=== PATIENT | female | born 1955 | race Hispanic/Latino ===

== ENCOUNTER 2016-11-14 00:23 | Inpatient (IN) | payer MEDICARE ==
[2016-11-14] MEDS ORDERED: DUONEB 0.5 MG-3 MG/3 ML SOLN IH ONE (00:53)
[2016-11-14] MEDS ORDERED: LASIX IV ONE (00:53)
[2016-11-14] MEDS ORDERED: DELTASONE PO ONE (00:53)
[2016-11-14] MEDS ORDERED: ZOFRAN IV ONE (00:54)
[2016-11-14] MEDS ORDERED: MORPHINE IV ONE (00:54)
[2016-11-14] MEDS ORDERED: BABY ASPIRIN PO ONE (00:55)
--- NOTE | 2016-11-14 00:55 | Emergency Department Report ---
HPI - General Time Seen by Provider: 11/14/16 00:24 - HPI HPI: The patient is a 61-year-old female with a history of CHF, hypertension, hyperlipidemia, who presents for evaluation of chest pain. The patient reports constant chest pain for the past 2-3 hours, midsternal in location, pressure- like in quality, radiating to the right axilla. She states that she believes she had a heart attack in the past but does not know if she'll received coronary stenting. The patient states that she is unsure if she has ever received a cardiac catheter or stress test. The patient denies fever, dyspnea, syncope, hemoptysis, unilateral leg swelling, recent immobilization, history of DVT or PE, recent cancer. ED Past Medical Hx - Past Medical History Hx Hypertension: Yes Hx Congestive Heart Failure: Yes Hx Headaches / Migraines: Yes Hx Seizures: Yes Hx Psychiatric Treatment: Yes (depression) Additional medical history: Glaucoma, Hiatel Hernia, Esophageal Stricture - Surgical History Additional Surgical History: Hysterectomy, Back Surgery - Social History Smoking Status: Current Every Day Smoker Substance Use Type: Alcohol - Medications Home Medications: Home Medications Medication Instructions Recorded Confirmed Last Taken Type Clonidine HCl [Kapvay] 0.1 mg PO BID 01/20/14 02/03/16 01/20/14 History Esomeprazole Magnesium [NexIUM] 40 mg PO QDAY 01/20/14 02/03/16 01/20/14 History FLUoxetine [PROzac] 40 mg PO QAM 01/20/14 02/03/16 01/19/14 History Travoprost [Travatan Z] 1 drop OP BID 01/20/14 02/05/16 01/18/14 History lamoTRIgine [LaMICtal Xr] 100 mg PO HS 01/20/14 02/03/16 01/19/14 History levETIRAcetam [Keppra TAB] 2 tab PO BID 01/20/14 02/03/16 01/20/14 History traZODone [Desyrel] 100 mg PO HS 01/20/14 02/03/16 01/19/14 History Budesoni/Formoterol 80-4.5(Nf) 2 puff IH BID 02/03/16 02/03/16 Unknown History [Symbicort 80-4.5 (Nf)] Furosemide [Lasix TAB] 20 mg PO QDAY 02/03/16 02/03/16 Unknown History Ipratropium (Nf) [Atrovent HFA 2 puff IH Q6HR 02/03/16 02/03/16 Unknown History 17MCG/PUFF] Lisinopril [Zestril TAB] 2.5 mg PO QDAY 02/03/16 02/03/16 Unknown History Lurasidone HCl [Latuda] 40 mg PO QHS 02/03/16 02/03/16 Unknown History Pantoprazole [Protonix TAB] 40 mg PO QDAY 02/03/16 02/03/16 Unknown History Quetiapine Fumarate [SEROquel] 50 mg PO QHS 02/03/16 02/03/16 Unknown History Ranitidine HCl [Acid Transmitter Operator] 150 mg PO BID 02/03/16 02/03/16 Unknown History Rosuvastatin (Nf) [Crestor] 20 mg PO QDAY 02/03/16 02/03/16 Unknown History Zolpidem [Ambien] 10 mg PO QHS 02/03/16 02/03/16 Unknown History ED Review of Systems ROS: Stated complaint: CHEST PAIN Other details as noted in HPI Constitutional: denies: fever ENT: denies: throat or neck pain Respiratory: denies: cough, shortness of breath Cardiovascular: reports chest pain Endocrine: denies unexplained weight loss or gain Gastrointestinal: denies: abdominal pain, nausea Genitourinary: denies: dysuria Musculoskeletal: denies: leg swelling Skin: denies: rash Neurological: denies: headache Hematological/Lymphatic: denies: easy bleeding or easy bruising Psych: denies sadness or hopelessness Physical Exam - Physical Exam Physical Exam: General: well-nourished, well-developed, no acute distress Head: Normocephalic, atraumatic Eyes: normal sclera ENT: Mucous membranes are pink and moist Neck: trachea midline, neck supple, No neck stiffness, no cervical adenopathy Respiratory: Breath sounds equal bilaterally, no wheezing, rales, or rhonchi Cardio: S1 and S2 present, no murmurs, rubs, gallops, capillary refill is brisk Abdomen: Normoactive bowel sounds, soft abdomen, no rigidity, no guarding or rebound tenderness Chest WALL/Back: No tenderness to palpation of the chest wall, no CVA tenderness with percussion Musc: No pitting edema Skin: No rash Neuro: no facial drooping, normal speech Psych: Normal affect ED Medical Decision Making - Lab Data Result diagrams: 11/14/16 00:56 11/14/16 00:56 - Medical Decision Making The patient was seen and examined by myself. The patient is placed on a cardiac exercise specialist and continuous pulse ox. On initial evaluation, the patient was found to be in no distress. EKG was negative for findings suggestive of acute cardiac infarct. The patient is given an aspirin tablet. The patient is given IV morphine for pain. Labs and imaging are obtained. Chest x-ray is negative for pneumothorax, focal consolidation, pulmonary vascular congestion, pleural effusion, or other obvious acute cardiopulmonary disease process. Lab results were non-revealing including negative troponin, WBC, hemoglobin, hematocrit, electrolytes, renal function. The patient was reevaluated and reported that their symptoms were improved. As the patient has chest pain and risk factors for development of acute coronary event, the patient will be admitted for close cardiopulmonary monitoring, serial troponins, and evaluation by cardiology. The physician on-call was contacted. They presented to the emergency department and evaluated the patient. They agreed to admit the patient. The ED admit order was placed. The patient was admitted in guarded condition. Critical care attestation.: If time is entered above; I have spent that time in minutes in the direct care of this critically ill patient, excluding procedure time. ED Disposition Clinical Impression: Acute chest pain Disposition: OP ADMITTED IP TO THIS HOSP Is pt being admited?: Yes Does the pt Need Aspirin: Yes Condition: Stable Time of Disposition: 00:54
[2016-11-14 01:40] LABS: Anion Gap 19 mmol/L; BUN/Creatinine Ratio 17.14; Blood Urea Nitrogen 12 mg/dL (7-17); Calcium 9.3 mg/dL (8.4-10.2); Carbon Dioxide 24 mmol/L (22-30); Chloride 100.8 mmol/L (98-107); Glucose 131 mg/dL (65-100); Potassium 3.7 mmol/L (3.6-5.0); Sodium 140 mmol/L (137-145)
[2016-11-14 02:15] LABS: Basophils % (Auto) 0.4 % (0.0-1.8); Eosinophils % (Auto) 2.6 % (0.0-4.3); Hemoglobin 12.2 gm/dl (10.1-14.3); Mean Corpuscular HGB Conc 32 % (30-34); Mean Corpuscular Hemoglobin 29 pg (28-32); Mean Corpuscular Volume 92 fl (79-97); Platelet Count 229 K/mm3 (140-440); Red Blood Count 4.15 M/mm3 (3.65-5.03); Red Cell Distribution Width 15.3 % (13.2-15.2); White Blood Count 7.6 K/mm3 (4.5-11.0)
--- NOTE | 2016-11-14 06:29 | History and Physical Report ---
History of Present Illness Date of examination: 11/14/16 Date of admission: 11/14/16 03:53 Chief complaint: chest pain History of present illness: This is a 61-year-old female with a history of CHF, hypertension, hyperlipidemia , who presents for evaluation of chest pain. The patient reports constant chest pain for the past 2-3 hours, midsternal in location, pressure-like in quality, radiating to the right axilla. She states that she was admitted to [place] last month and required ACLS for an episode of unconsciousness. The patient IS A POOR HISTORIAN AND states that she is unsure if she has ever received a cardiac catheter or stress test. The patient denies fever, dyspnea, syncope, hemoptysis, unilateral leg swelling, recent immobilization, history of DVT or PE, recent cancer. Past medical History: h/o CHF, hypertension, hyperlipidemia, migraine, seizure, depression, glaucoma, hiatal hernia, esophageal stricture. Past surgical History: s/p hysterectomy and back surgery Social History: Lives with family, denies any elicit drug abuse. She is a social drinker and current every day smoker Family History: Significant for cardiac disease Review of System: Constitutional: no fever, no chills, no weight loss Ears, eyes, nose, mouth and throat: no nasal congestion, no nasal discharge, no sinus pressure, no vision change, no red eye. Neck: No neck pain or rigidity. Cardiovascular: + chest pain, no orthopnea, no palpitations, no leg swelling Respiratory: No shortness of breath, no cough, no congestion, no wheezing Gastrointestinal: no abdominal pain, no nausea, no vomiting Genitourinary : no dysuria, no hematuria Musculoskeletal: no joint swelling or muscle ache Integumentary: no rash, no pruritis Neurological: no parathesias, no numbness, no tingling Endocrine: no cold or heat intolerance, no polyuria or polydipsia Hematologic/Lymphatic: no easy bruising, no easy bleeding, no gland swelling Allergic/Immunologic: no urticaria, no angioedema. Medications and Allergies Allergies Allergy/AdvReac Type Severity Reaction Status Date / Time No Known Allergies Allergy Verified 01/20/14 20:30 Home Medications Medication Instructions Recorded Confirmed Last Taken Type Clonidine HCl [Kapvay] 0.1 mg PO BID 01/20/14 11/14/16 01/20/14 History FLUoxetine [PROzac] 40 mg PO QAM 01/20/14 11/14/16 01/19/14 History levETIRAcetam [Keppra TAB] 2 tab PO BID 01/20/14 11/14/16 01/20/14 History Amitriptyline 150 mg PO QHS 11/14/16 11/14/16 Unknown History Buspirone HCl [busPIRone] 15 mg PO TID 11/14/16 11/14/16 Unknown History FLUoxetine HCL [FLUoxetine] 40 mg PO DAILY 11/14/16 11/14/16 Unknown History Gabapentin [Neurontin] 600 mg PO TID 11/14/16 11/14/16 Unknown History hydrALAZINE [Apresoline] 25 mg PO BID 11/14/16 11/14/16 Unknown History risperiDONE [RisperDAL] 2 mg PO BID 11/14/16 11/14/16 Unknown History Exam - Physical Exam Narrative exam: GENERAL: This is an elderly female lying on bed appeared to be in no discomfort. HEENT: Normocephalic. Atraumatic. Extraocular motions are intact. No conjunctival congestion or icterus. Patient has moist mucous membranes. External auditory canal and nares patent bilaterally. NECK: Supple. Trachea midline. No JVD, thyromagaly or lymphadenopathy. CHEST/LUNGS: Clear to auscultated bilaterally. There is no respiratory distress noted, breathing nonlabored. No wheezes crackles or rhonchi. HEART/CARDIOVASCULAR: Regular in rate and rhythm. PMI at the apex. There is no gallop rub or murmur. ABDOMEN: Abdomen is soft, nontender. Patient has normal bowel sounds. There is no abdominal distention. No organomagaly or rigidity. SKIN: There is no rash, no erythrema. There is no diaphoresis. Warm and dry. NEUROLOGY: The patient is awake, alert, and oriented. The patient is cooperative. The patient has normal speech. No focal motor deficit. MUSCULOSKELETAL: No joint effusion or tenderness. Muscle strength equal bilaterally. No muscle wasting. EXTRIMITY: No edema, cyanosis or clubbing. PSYCH: No depression or anxiety noted. Cooperative. - Constitutional Vitals: Temp Pulse Resp BP Pulse Ox 98.4 F 78 20 138/89 93 11/14/16 05:22 11/14/16 05:22 11/14/16 05:22 11/14/16 05:22 11/14/16 05:22 Results - Labs CBC & Chem 7: 11/14/16 00:56 11/14/16 00:56 Labs: Laboratory Last Values WBC 7.6 K/mm3 (4.5-11.0) 11/14/16 00:56 RBC 4.15 M/mm3 (3.65-5.03) 11/14/16 00:56 Hgb 12.2 gm/dl (10.1-14.3) 11/14/16 00:56 Hct 38.0 % (30.3-42.9) 11/14/16 00:56 MCV 92 fl (79-97) 11/14/16 00:56 MCH 29 pg (28-32) 11/14/16 00:56 MCHC 32 % (30-34) 11/14/16 00:56 RDW 15.3 % (13.2-15.2) H 11/14/16 00:56 Plt Count 229 K/mm3 (140-440) 11/14/16 00:56 Lymph % (Auto) 32.4 % (13.4-35.0) 11/14/16 00:56 [place] % (Auto) 6.9 % (0.0-7.3) 11/14/16 00:56 Eos % (Auto) 2.6 % (0.0-4.3) 11/14/16 00:56 Baso % (Auto) 0.4 % (0.0-1.8) 11/14/16 00:56 Lymph # 2.5 K/mm3 (1.2-5.4) 11/14/16 00:56 [place] # 0.5 K/mm3 (0.0-0.8) 11/14/16 00:56 Eos # 0.2 K/mm3 (0.0-0.4) 11/14/16 00:56 Baso # 0.0 K/mm3 (0.0-0.1) 11/14/16 00:56 Seg Neutrophils % 57.7 % (40.0-70.0) 11/14/16 00:56 Seg Neutrophils # 4.4 K/mm3 (1.8-7.7) 11/14/16 00:56 Sodium 140 mmol/L (137-145) 11/14/16 00:56 Potassium 3.7 mmol/L (3.6-5.0) 11/14/16 00:56 Chloride 100.8 mmol/L (98-107) 11/14/16 00:56 Carbon Dioxide 24 mmol/L (22-30) 11/14/16 00:56 Anion Gap 19 mmol/L 11/14/16 00:56 BUN 12 mg/dL (7-17) 11/14/16 00:56 Creatinine 0.7 mg/dL (0.7-1.2) 11/14/16 00:56 Estimated GFR > 60 ml/min 11/14/16 00:56 BUN/Creatinine Ratio 17.14 % 11/14/16 00:56 Glucose 131 mg/dL (65-100) H 11/14/16 00:56 Calcium 9.3 mg/dL (8.4-10.2) 11/14/16 00:56 Total Creatine Kinase 42 units/L (30-135) 11/14/16 01:09 Troponin T < 0.010 ng/mL (0.00-0.029) 11/14/16 00:56 NT-Pro-B Natriuret Pep 88.89 pg/mL (0-900) 11/14/16 01:09 - Imaging and Cardiology EKG: report reviewed Chest x-ray: report reviewed Assessment and Plan Assessment and plan: Acute chest pain, rule out ACS History of CHF, unknown ejection fraction History of depression History of seizure History of GERD with hiatal hernia and esophageal stricture Hypertension, benign essential History of glaucoma Plan: Admit to medicine [facility] with serial troponin and EKG obtain 2-D echo and thallium stress test Resume home meds Place on aspirin and statin GI and DVT prophylaxis Advance Directives: Yes VTE prophylaxis?: Chemical Plan of care discussed with patient/family: Yes
[2016-11-14] MEDS ORDERED: REGLAN PO PRN (06:32)
[2016-11-14] MEDS ORDERED: MORPHINE IV PRN (06:32)
[2016-11-14] MEDS ORDERED: TYLENOL PO PRN (06:32)
[2016-11-14] MEDS: NEURONTIN PO SCH ×3 (08:03→21:30)
[2016-11-14] MEDS: BUSPAR PO SCH ×6 (08:03→21:30)
[2016-11-14] MEDS ORDERED: LEXISCAN IV ONE ×2 (08:06→08:26)
--- NOTE | 2016-11-14 09:07 | XRay Report ---
AP CHEST : 11/14/16 00:23:00 CLINICAL: Chest pain. COMPARISON:None FINDINGS: Normal heart and pulmonary vessels.Aortic tortuosity. The lungs are normally expanded and clear except for mild bibasal subsegmental atelectasis. The bones and soft tissues are unremarkable. IMPRESSION: Mild bibasal subsegmental atelectasis. No CHF or pneumonia.
--- NOTE | 2016-11-14 11:56 | Consultation ---
History of Present Illness Consult date: 11/14/16 Consult reason: chest pain Past History Past Medical History: atrial fib, hypertension Social history: denies: smoking, alcohol abuse, prescription drug abuse Family history: no significant family history Medications and Allergies Allergies Allergy/AdvReac Type Severity Reaction Status Date / Time No Known Allergies Allergy Verified 01/20/14 20:30 Home Medications Medication Instructions Recorded Confirmed Last Taken Type Clonidine HCl [Kapvay] 0.1 mg PO BID 01/20/14 11/14/16 01/20/14 History FLUoxetine [PROzac] 40 mg PO QAM 01/20/14 11/14/16 01/19/14 History levETIRAcetam [Keppra TAB] 2 tab PO BID 01/20/14 11/14/16 01/20/14 History Amitriptyline 150 mg PO QHS 11/14/16 11/14/16 Unknown History Buspirone HCl [busPIRone] 15 mg PO TID 11/14/16 11/14/16 Unknown History FLUoxetine HCL [FLUoxetine] 40 mg PO DAILY 11/14/16 11/14/16 Unknown History Gabapentin [Neurontin] 600 mg PO TID 11/14/16 11/14/16 Unknown History hydrALAZINE [Apresoline] 25 mg PO BID 11/14/16 11/14/16 Unknown History risperiDONE [RisperDAL] 2 mg PO BID 11/14/16 11/14/16 Unknown History Active Meds: Active Medications Acetaminophen (Tylenol) 650 mg PO Q4H PRN PRN Reason: Pain MILD(1-3)/Fever >100.5/FULLER Acetaminophen/Hydrocodone Bitart (Luke 5/325) 2 each PO Q6H PRN PRN Reason: Pain, Moderate (4-6) Amitriptyline HCl (Elavil) 150 mg PO QHS [facility] Buspirone HCl (Buspar) 10 mg PO TID [facility] Last Admin: 11/14/16 08:03 Dose: Not Given Buspirone HCl (Buspar) 5 mg PO TID [facility] Last Admin: 11/14/16 08:03 Dose: Not Given Clonidine HCl (Catapres) 0.1 mg PO BID [facility] Docusate Sodium (Colace) 100 mg PO BID [facility] Enoxaparin Sodium (Lovenox) 40 mg SUB-Q QDAY@2200 [facility] Famotidine (Pepcid) 10 mg PO BID [facility] Fluoxetine HCl (Prozac) 40 mg PO QAM [facility] Gabapentin (Neurontin) 600 mg PO TID [facility] Last Admin: 11/14/16 08:03 Dose: Not Given Levetiracetam (Keppra) 500 mg PO BID [facility] Metoclopramide HCl (Reglan) 10 mg PO Q6H PRN PRN Reason: Nausea And Vomiting Morphine Sulfate (Morphine) 2 mg IV Q4H PRN PRN Reason: Pain, Moderate (4-6) Risperidone (Risperdal) 2 mg PO BID [facility] Review of Systems Constitutional: no weight loss, no fever, no chills, no anorexia, no fatigue ( very poor unreliable historian) Physical Examination Vital Signs Pulse Resp BP 88 18 138/85 11/14/16 00:35 11/14/16 00:35 11/14/16 00:35 General appearance: no acute distress HEENT: Positive: PERRL Neck: Positive: neck supple Cardiac: Positive: Reg Rate and Rhythm, S1/S2 Lungs: Positive: clear to auscultation Neuro: Positive: Grossly Intact Abdomen: Positive: Unremarkable, Soft, Active Bowel Sounds Female genitourinary: deferred Skin: Positive: Clear. Negative: Rash Musculoskeletal: Normal Range of Motion Extremities: Present: normal Results 11/14/16 00:56 11/14/16 00:56 Cardiac Enzymes 11/14/16 11/14/16 Range/Units 07:43 07:43 Troponin T < 0.010 (0.00-0.029) ng/mL Triglycerides 156 H (2-149) mg/dL Cholesterol 220 H (50-199) mg/dL LDL Cholesterol Direct 151 H (50-130) mg/dL HDL Cholesterol 38 L (40-59) mg/dL Cholesterol/HDL Ratio 5.78 % Lipids 11/14/16 Range/Units 07:43 Triglycerides 156 H (2-149) mg/dL Cholesterol 220 H (50-199) mg/dL HDL Cholesterol 38 L (40-59) mg/dL Cholesterol/HDL Ratio 5.78 % Assessment and Plan 61yo WF: 1. Atypical CP * now resolved * ce neg x 3, no acute ecg changes * stress mpi neg for ischemia, nl lv fxn 2. Depression 3. Siezure d/o 4. GERD 5. sHTN 6. ? dementia 7. Mixed hyperlipidemia start statin, cont asa stable cv status cardiac history is unclear D/w Dr. More F/U with primary research management associate at [facility]
--- NOTE | 2016-11-14 13:20 | Echocardiography Report ---
REFERRING PHYSICIAN: Catina Morales MD INDICATION: Shortness of breath, chest pain. Please see report for all measurements and velocities. INTERPRETATION: This is a technically difficult study due to poor acoustic windows. There is a mild concentric left ventricular hypertrophy with normal chamber size and systolic performance grossly. Estimated ejection fraction of 65-70%. Aortic valve appears to be difficult to visualize, but appears to be preserved in excursion and coaptation. No evidence of aortic insufficiency. Right ventricle, right atrium appears grossly normal. Left atrium is normal in size. Mitral valve is mildly thickened, mild mitral regurgitation is identified. There is mild diastolic dysfunction. No pericardial effusion. CONCLUSIONS: 1. Technically difficult limited study due to poor acoustic windows. 2. Mild concentric left ventricular hypertrophy with normal chamber size and LV function. 3. Mild diastolic dysfunction. 4. Mild mitral regurgitation. 5. No pericardial effusion. JOB# [id number] SBM/NTS
[2016-11-14] MEDS: KEPPRA PO SCH ×2 (13:27→21:31)
[2016-11-14] MEDS: PEPCID PO SCH ×2 (13:27→21:32)
[2016-11-14] MEDS: RisperDAL PO SCH ×2 (13:28→21:32)
[2016-11-14] MEDS: CATAPRES PO SCH ×2 (13:28→21:30)
[2016-11-14] MEDS: COLACE PO SCH ×2 (13:28→21:31)
[2016-11-14] MEDS: PROzac PO SCH (13:28)
[2016-11-14] MEDS: NORCO 5/325 PO PRN (13:28)
--- NOTE | 2016-11-14 13:53 | Discharge Summary ---
Providers - Providers Date of Admission: 11/14/16 03:53 Date of discharge: 11/17/16 Attending physician: JEFF GRIMES MD 11/14/16 07:36 Consult to Physician [CONS] Routine Consulting Provider: MONA DAVIES Reason For Exam: chest pain Place consult to:: immigration law specialist cardiology Notified:: Verito CUEVAS Phone number called:: Was contact made?: Yes If yes, spoke with:: Verna-andreia service Time called:: 08:24 Primary care physician: FUR VAULT ATTENDANT Hospitalization Reason for admission: chest pain Condition: Stable Hospital course: This is a 61-year-old female with a history of CHF, hypertension, hyperlipidemia , who presents for evaluation of chest pain. The patient reports constant chest pain for the past 2-3 hours, midsternal in location, pressure-like in quality, radiating to the right axilla. She states that she was admitted to [place] last month and required ACLS for an episode of unconsciousness. The patient IS A POOR HISTORIAN AND states that she is unsure if she has ever received a cardiac catheter or stress test. The patient denies fever, dyspnea, syncope, hemoptysis, unilateral leg swelling, recent immobilization, history of DVT or PE, recent cancer. Plan follow discussion with the patient she reports she has had some chronic pain including tailbone pain and also neck pain. Sometimes at this consult across her chest and that may have been what she was experiencing yesterday. Nevertheless her stress test is negative. We'll start him on aspirin and statin therapy also. Recommended outpatient follow-up with cardiology. Patient improved faster than anticipated Discharge diagnosis 1. Atypical CP-likely costochondritis 2. Depression 3. Siezure d/o 4. Hiatal hernia 5. Esophageal stricture 6. Glaucoma 7. GERD 8. HTN 9. ? dementia 10. Mixed hyperlipidemia Disposition: DISCHARGED TO HOME OR SELFCARE Time spent for discharge: 35 mins Core Measure Documentation - Palliative Care Palliative Care/ Comfort Measures: Not Applicable - Core Measures Any of the following diagnoses?: none - VTE Discharge Requirements Deep Vein Thrombosis/Pulmonary Embolism Present on Admission: No Exam - Physical Exam Narrative exam: VITAL SIGNS: Reviewed. GENERAL: The patient appeared well nourished and normally developed. Vital signs as documented. HEAD: No signs of head trauma. EYES: Pupils are equal. Extraocular motions intact. EARS: Hearing grossly intact. MOUTH: Oropharynx is normal. NECK: No adenopathy, no JVD. CHEST: Chest with clear breath sounds bilaterally. No wheezes, rales, or rhonchi. CARDIAC: Regular rate and rhythm. S1 and S2, without murmurs, gallops, or rubs. VASCULAR: No Edema. Peripheral pulses normal and equal in all extremities. ABDOMEN: Soft, without detectable tenderness. No sign of distention. No rebound or guarding, and no masses palpated. Bowel Sounds normal. MUSCULOSKELETAL: Good range of motion of all major joints. Extremities without clubbing, cyanosis or edema. NEUROLOGIC EXAM: Alert and oriented x 3. No focal sensory or strength deficits. Speech normal. Follows commands. PSYCHIATRIC: Mood normal. SKIN: No rash or lesions. - Constitutional Vitals: Temp Pulse Resp BP Pulse Ox 98.2 F 82 20 140/99 93 11/14/16 08:13 11/14/16 11:08 11/14/16 08:13 11/14/16 10:31 11/14/16 08:13 Plan Activity: advance as tolerated, fall precautions Diet: low fat, low salt Follow up with: PRIMARY CARE, [Primary Care Provider] - 3-5 Days Prescriptions: AtorvaSTATin [Lipitor] 20 mg PO QHS #30 tablet Aspirin 81 mg PO DAILY #30 tab.chew
[2016-11-14] MEDS: ELAVIL PO SCH (21:31)
[2016-11-14] MEDS: LOVENOX SUB-Q SCH ×2 (21:32→21:34)
--- NOTE | 2016-11-14 23:36 | Admit Criteria Form ---
Admission Criteria Documentation: CARDIOLOGY GRG Clinical Indications for Admission to Inpatient Care ( Place 'X' for any and all applicable criteria): Hospital admission is needed for appropriate care of the patient because of ANY ONE of the following (1): [ ] I. Hemodynamic instability as indicated by ALL of the following (1)(2)(3) (4)(5) [ ]a) Vital signs or other findings not as expected for chronic patient condition or baseline [ ]b) Instability indicated by ANY ONE of the following: [ ]i) Hypotension [ ]ii) Symptomatic Tachycardia unresponsive to treatment ( e.g., analgesia, fluids, sedation as indicated) [ ]iii) Inadequate perfusion indicated by ANY ONE of the following: [ ] 1) Lactic acidosis (> 2 mmol/L) [ ] 2) New abnormal capillary refill (> 3 seconds) [ ] 3) Reduced urine output [ ] 4) New altered mental status [ ]iv) Orthostatic vital sign changes unresponsive to treatment (e.g., fluids) [ ]v) IV inotropic or vasopressor medication required to maintain adequate blood pressure or perfusion [ ] II. Severe heart failure as indicated by ANY ONE of the following(17)(18) [ ]a) Respiratory distress [ ]b) Hypotension [ ]c) Anasarca (refractory to outpatient therapy) [ ]d) Cardiac arrhythmias of immediate concern [ ]e) Myocardial ischemia [ ] III. Cardiac arrhythmias or findings of immediate concern indicated by ANY ONE of the following (19)(20): [ ] a) Heart rhythms that are inherently dangerous or unstable indicated by ANY ONE of the following (21)(22)(23): [ ] i) Resuscitated ventricular fibrillation or cardiac arrest [ ] ii) Ventricular escape rhythm [ ] iii) Sustained ventricular tachycardia (30 seconds or more of ventricular rhythm at greater than 100 beats per minute) [ ] iv) Nonsustained ventricular tachycardia and ANY ONE of the following: [ ] 1) Suspected cardiac ischemia as cause or consequence of ventricular tachycardia [ ] 2) In setting of acute myocarditis [ ] b) Unstable cardiac conduction defects indicated by ANY ONE of the following(23)(24)(25) [ ] i) Type II second-degree atrioventricular block [ ]ii) Third-degree atrioventricular block [ ]iii) New-onset left bundle branch block with suspected myocardial ischemia [ ]c) Any heart rhythm and ANY ONE of the following (21)(22)(26)(27) (28) [ ] i) Continuous long-term ECG monitoring needed (e.g., initiation of drug requiring monitoring for more than 24 hours) [ ] ii) Patient has automatic implanted cardioverter defibrillator that is repeatedly firing, malfunctioning, or in need of immediate adjustment of settings beyond the scope of ambulatory or observation care [ ]d) Heart rhythms of concern due to ANY ONE of the following: [ ] i) Hypotension [ ] ii) Respiratory distress [ ] iii) Association with other significant symptoms (e.g., bradycardia with syncope or ongoing dizziness, supraventricular tachycardia with chest pain (14)(15)(17) [ ] IV. Monitoring for cardiac contusion beyond the scope of observation care needed [A](30)(31)(32) [ ] V. Surgical or device complication (e.g., valve replacement complication , pacemaker dysfunction) (35)(41)(44)(45)(46) [ ] . Inpatient palliative care needed. [B](49) Also use Inpatient Palliative Care Criteria [ ] VII. Nonbacterial thrombotic (marantic) endocarditis (36)(43)(47)(48) [ X] VIII. Cardiology condition, symptom, or finding for which emergency and observation care has failed or are not considered appropriate. [ ] IX. Acute valvular disease requiring inpatient as indicated by ANY ONE of the following (41) [ ]a) Acute valvular regurgitation (42) [ ]b) Noninfectious valvulitis (43) [ ]c) Obstructive valve thrombosis [ ]d) Paravalvular leak [ ]e) Other significant valvular disorder remaining after emergency or observation level of care (as appropriate) [ ]X. Pericardial disease requiring inpatient treatment as indicated by ANY ONE of the following (33)(34)(35)(36)(37) [ ]a) Suspected tamponade (38)(39)(40) [ ]b) Hemopericardium [ ]c) Other significant pericardial disorder remaining after emergency or observation level of care (as appropriate) [ ] XI. Cardiac ischemia beyond scope of emergency and observation care. [ ] XII. Hypertension requiring inpatient treatment as indicated by ANY ONE of the following (6)(7)(8) [ ]a) SBP greater than 220 mm Hg or DBP greater than 120 mmHg despite treatment [ ]b) SBP greater than 140 mm Hg or DBP greater than 100 mm Hg with evidence of acute end organ damage as indicated by ANY ONE of the following [ ] i) Altered mental status [ ] ii) Acute renal failure as indicated by new onset of ANY ONE of the following (9)(10)(11)(12)(13) [ ]1) 3-fold rise in serum creatinine from baseline [ ]2) Serum creatinine greater than 4 mg/dL ( 354 micromoles/L) with acute rise greater than 0.5 mg/dL (44.2 micromoles/L) [ ]3) Reduction of more than 75% in estimated glomerular filtration rate from baseline [ ]4) Estimated glomerular filtration rate less than 35 mL/min/1.73m2 (0.59 mL/sec/1.73m2) in child up to 18 years of age [ ]5) Cessation of urine output indicated by ALL of the following [ ]A. Adequate volume status [ ]B. Inadequate urine output as indicated by ANY ONE of the following [ ]a. Urine output less than 0.3 mL/kg/hr for 24 hours [ ]b. Anuria (urine output less than 0.1 mL/kg/hr) for 12 hours [ ] iii) Aortic dissection [ ] iv) Myocardial Ischemia [ ] v) Left ventricular heart failure [ ]vi) Retinal Hemorrhage [ ]vii) Other significant finding [ ]c) Hypertension in child requiring inpatient treatment as indicated by ALL of the following(14)(15)(16) [ ] i) Outpatient treatment not effective, not available, or not appropriate [ ]ii) SBP or DBP greater than 95th percentile for age [ ]iii) Evidence of acute end organ damage as indicated by ANY ONE of the following [ ]1) Altered mental status [ ]2) Acute renal failure as indicated by new onset of ANY ONE of the following(9)(10)(11)(12)(13) [ ]A. 3-fold rise in serum creatinine from baseline [ ]B. Serum creatinine greater than 4 mg/dL (354 micromoles/L) with acute rise greater than 0.5 mg/dL (44.2 micromoles/L) [ ]C. Reduction of more than 75% in estimated glomerular filtration rate from baseline [ ]D. Estimated glomerular filtration rate less than 35 mL/min/1.73m2 (0.59 mL/sec/1.73m2) in child up to 18 years of age [ ]E. Cessation of urine output indicated by ALL of the following [ ]a. Adequate volume status [ ]b. Inadequate urine output as indicated by ANY ONE of the following [ ]i) Urine output less than 0.3 mL/kg/hr for 24 hours [ ]ii) Anuria ( urine output less than 0.1 mL/kg/hr) for 12 hours [ ]3) Severe headache [ ]4) Visual disturbance [ ]5) Retinal hemorrhage [ ]6) Other significant finding [ ]XIII. Complications of transplanted heart indicated by ANY ONE of the following(61): [ ]a) Acute graft rejection requiring inpatient management (eg, intravenous immunosuppression)(62)(63) [ ]b) Acute graft heart failure indicated by ANY ONE of the following(64): [ ]i) Hemodynamic instability [ ]ii) Cardiac arrhythmias of immediate concern [ ]iii) Pulmonary edema that is very severe (eg, mechanical ventilation needed, imminent or likely, need for 100% oxygen to keep oxygen saturation above 90%) [ ]iv) Pulmonary edema that is persistent as indicated by ALL of the following: [ ]1) New need for oxygen therapy to keep oxygen saturation above 90% (or increased FiO2 need from baseline) [ ]2) Has not improved sufficiently with emergency department or observation care IV diuretics or other heart failure treatments[E] [ ]v) Altered mental status that is severe or persistent [ ]vi) Increased creatinine (new on laboratory test) with reduction of more than 50% in estimated glomerular filtration rate from baseline [ ]vii) Progressively (ongoing) rising creatinine (known from past laboratory test) with reduction of more than 25% in estimated glomerular filtration rate from baseline [ ]viii) Acute renal failure [ ]ix) Acute peripheral ischemia (eg, examination shows pulseless, cool, mottled, or cyanotic extremity) [ ]x) Pulmonary artery catheter monitoring needed [ ]xi) Other sign or symptom of heart failure requiring inpatient treatment (ie, too severe or not responsive to outpatient and observation care treatment) [ ]c) Infection requiring inpatient management (eg, Hemodynamic instability, need for intravenous antimicrobial treatment)(66)(67)(68)(69)(70) [ ]d) Cardiac allograft vasculopathy requiring inpatient management ( eg evidence of cardiac ischemia)(71) [ ]e) Other complication of transplanted heart (eg, stroke, severe pulmonary hypertension, severe valvular dysfunction) requiring inpatient management(72) The original [facility] content created by [facility] has been revised. The portions of the content which have been revised are identified through the use of italic text or in bold, and [facility] has neither reviewed nor approved the modified material. All other unmodified content is copyright [facility] [employer]. Please see references footnoted in the original [facility] edition 2016 Admission Criteria Met: Yes
--- NOTE | 2016-11-15 00:59 | Treadmill Report ---
NUCLEAR PERFUSION SCAN REFERRING PHYSICIAN: Catina Morales MD STRESS THALLIUM PROTOCOL: The patient was brought to the stress lab in a post-absorptive state, given 10 mCi of technetium 99m. Shortly thereafter, the patient underwent rest imaging. The patient underwent Lexiscan stress test per standard protocol. At peak stress, the patient was given 26 mCi of technetium-99m. Shortly thereafter, the patient underwent stress imaging. Raw imaging reveals mild GI artifact. No significant motion artifact. SPECT imaging examined carefully in the horizontal long axis, vertical long axis, and short axis views. Grossly, there is normal homogenous uptake of radioisotope in all reported segments. No evidence of a significant fixed or reversible perfusion defects suggestive of prior infarction or ischemia. Gated wall motion reveals normal systolic thickening, calculated ejection fraction of 77%. No TID. CONCLUSIONS: 1. Normal myocardial perfusion scan without evidence of active ischemia or prior infarction. 2. Normal left ventricular systolic performance without evidence of transient ischemic dilatation or stress-induced segmental wall motion abnormalities. 3. Lexiscan stress test is reported separately. JOB# [id number] SBWilder/NTS
[2016-11-15] MEDS: NORCO 5/325 PO PRN (02:42)
[2016-11-15] MEDS: PROzac PO SCH (09:37)
[2016-11-15] MEDS: RisperDAL PO SCH ×2 (09:37→21:36)
[2016-11-15] MEDS: PEPCID PO SCH ×2 (09:37→21:38)
[2016-11-15] MEDS: KEPPRA PO SCH ×2 (09:37→21:38)
[2016-11-15] MEDS: NEURONTIN PO SCH ×3 (09:38→21:38)
[2016-11-15] MEDS: BUSPAR PO SCH ×6 (09:38→21:37)
[2016-11-15] MEDS: COLACE PO SCH ×2 (09:38→21:37)
[2016-11-15] MEDS: CATAPRES PO SCH ×2 (09:39→21:37)
--- NOTE | 2016-11-15 14:23 | Progress Note ---
Assessment and Plan Stable cardiac status. We will sign off and see when necessary. - Patient Problems (1) Atypical chest pain Current Visit: Yes Status: Resolved (2) Hypertension Current Visit: Yes Status: Chronic Qualifiers: Hypertension type: essential hypertension Qualified Code(s): I10 - Essential (primary) hypertension Subjective Date of service: 11/15/16 Principal diagnosis: Atypical CP, HTN, Dementia Interval history: No chest pain. Objective Vital Signs Temp Pulse Pulse Pulse Resp BP Pulse Ox 11/15/16 12:50 98.4 F 87 18 147/93 94 11/15/16 10:00 98 11/15/16 07:27 97.8 F 79 18 124/76 91 11/15/16 05:00 98.2 F 73 18 124/78 92 11/15/16 00:50 98.6 F 76 19 122/75 91 11/14/16 20:59 97.7 F 83 19 126/80 92 11/14/16 20:32 20 11/14/16 17:35 98.1 F 88 20 130/81 94 - Physical Examination General: No Apparent Distress HEENT: Positive: EOMI, Normocephaly, Mucus Membranes Moist Neck: Positive: neck supple, trachea midline Cardiac: Positive: Reg Rate and Rhythm, S1/S2 Lungs: Positive: Wheezes Neuro: Positive: Grossly Intact Abdomen: Positive: Soft, Active Bowel Sounds. Negative: Tender Skin: Positive: Clear. Negative: Rash Musculoskeletal: Normal Range of Motion Extremities: Present: normal. Absent: edema - Imaging and Cardiology EKG: report reviewed
--- NOTE | 2016-11-15 16:22 | Progress Note ---
Assessment and Plan Assessment and plan: This is a 61-year-old female with a history of CHF, hypertension, hyperlipidemia , who presents for evaluation of chest pain. The patient reports constant chest pain for the past 2-3 hours, midsternal in location, pressure-like in quality, radiating to the right axilla. She states that she was admitted to [facility] last month and required ACLS for an episode of unconsciousness. The patient IS A POOR HISTORIAN AND states that she is unsure if she has ever received a cardiac catheter or stress test. The patient denies fever, dyspnea, syncope, hemoptysis, unilateral leg swelling, recent immobilization, history of DVT or PE, recent cancer. Plan follow discussion with the patient she reports she has had some chronic pain including tailbone pain and also neck pain. Sometimes at this consult across her chest and that may have been what she was experiencing yesterday. Nevertheless her stress test is negative. We'll start him on aspirin and statin therapy also. Recommended outpatient follow-up with cardiology. Patient improved faster than anticipated 1. Atypical CP-likely costochondritis 2. Depression 3. Siezure d/o 4. Hiatal hernia 5. Esophageal stricture 6. Glaucoma 7. GERD 8. HTN 9. ? dementia 10. Mixed hyperlipidemia Plan Continue current therapy Discharge home once bed is available History Interval history: Patient seen and examined this morning in no acute distress Denies any chest pain, nausea, vomiting, diarrhea No fever noted blood pressure controlled No adverse events reported to me by nursing staff Hospitalist Physical - Physical exam Narrative exam: VITAL SIGNS: Reviewed. GENERAL: The patient appeared well nourished and normally developed. Vital signs as documented. HEAD: No signs of head trauma. EYES: Pupils are equal. Extraocular motions intact. EARS: Hearing grossly intact. MOUTH: Oropharynx is normal. NECK: No adenopathy, no JVD. CHEST: Chest with clear breath sounds bilaterally. No wheezes, rales, or rhonchi. CARDIAC: Regular rate and rhythm. S1 and S2, without murmurs, gallops, or rubs. VASCULAR: No Edema. Peripheral pulses normal and equal in all extremities. ABDOMEN: Soft, without detectable tenderness. No sign of distention. No rebound or guarding, and no masses palpated. Bowel Sounds normal. MUSCULOSKELETAL: Good range of motion of all major joints. Extremities without clubbing, cyanosis or edema. NEUROLOGIC EXAM: Alert and oriented x 3. No focal sensory or strength deficits. Speech normal. Follows commands. PSYCHIATRIC: Mood normal. SKIN: No rash or lesions. - Constitutional Vitals: Temp Pulse Resp BP Pulse Ox 97.7 F 89 18 121/81 93 11/15/16 15:32 11/15/16 15:32 11/15/16 15:32 11/15/16 15:32 11/15/16 15:32 General appearance: Present: no acute distress Results - Labs CBC & Chem 7: 11/14/16 00:56 11/14/16 00:56 Labs: Laboratory Last Values WBC 7.6 K/mm3 (4.5-11.0) 11/14/16 00:56 RBC 4.15 M/mm3 (3.65-5.03) 11/14/16 00:56 Hgb 12.2 gm/dl (10.1-14.3) 11/14/16 00:56 Hct 38.0 % (30.3-42.9) 11/14/16 00:56 MCV 92 fl (79-97) 11/14/16 00:56 MCH 29 pg (28-32) 11/14/16 00:56 MCHC 32 % (30-34) 11/14/16 00:56 RDW 15.3 % (13.2-15.2) H 11/14/16 00:56 Plt Count 229 K/mm3 (140-440) 11/14/16 00:56 Lymph % (Auto) 32.4 % (13.4-35.0) 11/14/16 00:56 [place] % (Auto) 6.9 % (0.0-7.3) 11/14/16 00:56 Eos % (Auto) 2.6 % (0.0-4.3) 11/14/16 00:56 Baso % (Auto) 0.4 % (0.0-1.8) 11/14/16 00:56 Lymph # 2.5 K/mm3 (1.2-5.4) 11/14/16 00:56 [place]ier # 0.5 K/mm3 (0.0-0.8) 11/14/16 00:56 Eos # 0.2 K/mm3 (0.0-0.4) 11/14/16 00:56 Baso # 0.0 K/mm3 (0.0-0.1) 11/14/16 00:56 Seg Neutrophils % 57.7 % (40.0-70.0) 11/14/16 00:56 Seg Neutrophils # 4.4 K/mm3 (1.8-7.7) 11/14/16 00:56 Sodium 140 mmol/L (137-145) 11/14/16 00:56 Potassium 3.7 mmol/L (3.6-5.0) 11/14/16 00:56 Chloride 100.8 mmol/L (98-107) 11/14/16 00:56 Carbon Dioxide 24 mmol/L (22-30) 11/14/16 00:56 Anion Gap 19 mmol/L 11/14/16 00:56 BUN 12 mg/dL (7-17) 11/14/16 00:56 Creatinine 0.7 mg/dL (0.7-1.2) 11/14/16 00:56 Estimated GFR > 60 ml/min 11/14/16 00:56 BUN/Creatinine Ratio 17.14 % 11/14/16 00:56 Glucose 131 mg/dL (65-100) H 11/14/16 00:56 Calcium 9.3 mg/dL (8.4-10.2) 11/14/16 00:56 Total Creatine Kinase 42 units/L (30-135) 11/14/16 01:09 Troponin T < 0.010 ng/mL (0.00-0.029) 11/14/16 13:46 NT-Pro-B Natriuret Pep 88.89 pg/mL (0-900) 11/14/16 01:09 Triglycerides 156 mg/dL (2-149) H 11/14/16 07:43 Cholesterol 220 mg/dL (50-199) H 11/14/16 07:43 LDL Cholesterol Direct 151 mg/dL (50-130) H 11/14/16 07:43 HDL Cholesterol 38 mg/dL (40-59) L 11/14/16 07:43 Cholesterol/HDL Ratio 5.78 % 11/14/16 07:43
--- NOTE | 2016-11-15 16:24 | Progress Note ---
Assessment and Plan Assessment and plan: This is a 61-year-old female with a history of CHF, hypertension, hyperlipidemia , who presents for evaluation of chest pain. The patient reports constant chest pain for the past 2-3 hours, midsternal in location, pressure-like in quality, radiating to the right axilla. She states that she was admitted to [place] last month and required ACLS for an episode of unconsciousness. The patient IS A POOR HISTORIAN AND states that she is unsure if she has ever received a cardiac catheter or stress test. The patient denies fever, dyspnea, syncope, hemoptysis, unilateral leg swelling, recent immobilization, history of DVT or PE, recent cancer. 1. Atypical CP-likely costochondritis 2. Depression 3. Siezure d/o 4. Hiatal hernia 5. Esophageal stricture 6. Glaucoma 7. GERD 8. HTN 9. ? dementia 10. Mixed hyperlipidemia Plan Patient could not be discharged yesterday due to placement issues. She states that her sister has been spent money and not pain the personal shelter. The [employer] project manager on this. The state has been gotten involved as she does have a straight case management was trying to get her placed. No further distress is noted today. We'll continue current therapy. Seizure precautions. Continue current therapy Discharge home once bed is available History Interval history: Patient seen and examined this morning in no acute distress Denies any chest pain, nausea, vomiting, diarrhea No fever noted blood pressure controlled No adverse events reported to me by nursing staff Hospitalist Physical - Physical exam Narrative exam: VITAL SIGNS: Reviewed. GENERAL: The patient appeared well nourished and normally developed. Vital signs as documented. HEAD: No signs of head trauma. EYES: Pupils are equal. Extraocular motions intact. EARS: Hearing grossly intact. MOUTH: Oropharynx is normal. NECK: No adenopathy, no JVD. CHEST: Chest with clear breath sounds bilaterally. No wheezes, rales, or rhonchi. CARDIAC: Regular rate and rhythm. S1 and S2, without murmurs, gallops, or rubs. VASCULAR: No Edema. Peripheral pulses normal and equal in all extremities. ABDOMEN: Soft, without detectable tenderness. No sign of distention. No rebound or guarding, and no masses palpated. Bowel Sounds normal. MUSCULOSKELETAL: Good range of motion of all major joints. Extremities without clubbing, cyanosis or edema. NEUROLOGIC EXAM: Alert and oriented x 3. No focal sensory or strength deficits. Speech normal. Follows commands. PSYCHIATRIC: Mood normal. SKIN: No rash or lesions. - Constitutional Vitals: Temp Pulse Resp BP Pulse Ox 97.7 F 89 18 121/81 93 11/15/16 15:32 11/15/16 15:32 11/15/16 15:32 11/15/16 15:32 11/15/16 15:32 General appearance: Present: no acute distress Results - Labs CBC & Chem 7: 11/14/16 00:56 11/14/16 00:56 Labs: Laboratory Last Values WBC 7.6 K/mm3 (4.5-11.0) 11/14/16 00:56 RBC 4.15 M/mm3 (3.65-5.03) 11/14/16 00:56 Hgb 12.2 gm/dl (10.1-14.3) 11/14/16 00:56 Hct 38.0 % (30.3-42.9) 11/14/16 00:56 MCV 92 fl (79-97) 11/14/16 00:56 MCH 29 pg (28-32) 11/14/16 00:56 MCHC 32 % (30-34) 11/14/16 00:56 RDW 15.3 % (13.2-15.2) H 11/14/16 00:56 Plt Count 229 K/mm3 (140-440) 11/14/16 00:56 Lymph % (Auto) 32.4 % (13.4-35.0) 11/14/16 00:56 Kings % (Auto) 6.9 % (0.0-7.3) 11/14/16 00:56 Eos % (Auto) 2.6 % (0.0-4.3) 11/14/16 00:56 Baso % (Auto) 0.4 % (0.0-1.8) 11/14/16 00:56 Lymph # 2.5 K/mm3 (1.2-5.4) 11/14/16 00:56 Kings # 0.5 K/mm3 (0.0-0.8) 11/14/16 00:56 Eos # 0.2 K/mm3 (0.0-0.4) 11/14/16 00:56 Baso # 0.0 K/mm3 (0.0-0.1) 11/14/16 00:56 Seg Neutrophils % 57.7 % (40.0-70.0) 11/14/16 00:56 Seg Neutrophils # 4.4 K/mm3 (1.8-7.7) 11/14/16 00:56 Sodium 140 mmol/L (137-145) 11/14/16 00:56 Potassium 3.7 mmol/L (3.6-5.0) 11/14/16 00:56 Chloride 100.8 mmol/L (98-107) 11/14/16 00:56 Carbon Dioxide 24 mmol/L (22-30) 11/14/16 00:56 Anion Gap 19 mmol/L 11/14/16 00:56 BUN 12 mg/dL (7-17) 11/14/16 00:56 Creatinine 0.7 mg/dL (0.7-1.2) 11/14/16 00:56 Estimated GFR > 60 ml/min 11/14/16 00:56 BUN/Creatinine Ratio 17.14 % 11/14/16 00:56 Glucose 131 mg/dL (65-100) H 11/14/16 00:56 Calcium 9.3 mg/dL (8.4-10.2) 11/14/16 00:56 Total Creatine Kinase 42 units/L (30-135) 11/14/16 01:09 Troponin T < 0.010 ng/mL (0.00-0.029) 11/14/16 13:46 NT-Pro-B Natriuret Pep 88.89 pg/mL (0-900) 11/14/16 01:09 Triglycerides 156 mg/dL (2-149) H 11/14/16 07:43 Cholesterol 220 mg/dL (50-199) H 11/14/16 07:43 LDL Cholesterol Direct 151 mg/dL (50-130) H 11/14/16 07:43 HDL Cholesterol 38 mg/dL (40-59) L 11/14/16 07:43 Cholesterol/HDL Ratio 5.78 % 11/14/16 07:43
[2016-11-15] MEDS: ELAVIL PO SCH (21:35)
[2016-11-15] MEDS: LOVENOX SUB-Q SCH (21:39)
[2016-11-16] MEDS: NORCO 5/325 PO PRN (03:23)
[2016-11-16] MEDS: BUSPAR PO SCH ×6 (08:43→22:21)
[2016-11-16] MEDS: NEURONTIN PO SCH ×3 (08:43→22:18)
[2016-11-16] MEDS: COLACE PO SCH ×2 (09:45→22:18)
[2016-11-16] MEDS: CATAPRES PO SCH ×2 (09:45→22:14)
[2016-11-16] MEDS: PEPCID PO SCH ×2 (09:45→22:18)
[2016-11-16] MEDS: KEPPRA PO SCH ×2 (09:45→22:18)
[2016-11-16] MEDS: RisperDAL PO SCH ×2 (09:46→22:17)
[2016-11-16] MEDS: PROzac PO SCH (09:46)
--- NOTE | 2016-11-16 22:02 | Progress Note ---
Assessment and Plan Assessment and plan: This is a 61-year-old female with a history of CHF, hypertension, hyperlipidemia , who presents for evaluation of chest pain. The patient reports constant chest pain for the past 2-3 hours, midsternal in location, pressure-like in quality, radiating to the right axilla. She states that she was admitted to [facility] last month and required ACLS for an episode of unconsciousness. The patient IS A POOR HISTORIAN AND states that she is unsure if she has ever received a cardiac catheter or stress test. The patient denies fever, dyspnea, syncope, hemoptysis, unilateral leg swelling, recent immobilization, history of DVT or PE, recent cancer. 1. Atypical CP-likely costochondritis 2. Depression 3. Siezure d/o 4. Hiatal hernia 5. Esophageal stricture 6. Glaucoma 7. GERD 8. HTN 9. ? dementia 10. Mixed hyperlipidemia Plan Continue current therapy Still awaiting placement No further chest pain seizure precautions. Continue current therapy Discharge home once bed is available History Interval history: Patient seen and examined this morning in no acute distress Denies any chest pain, nausea, vomiting, diarrhea No fever noted blood pressure controlled No adverse events reported to me by nursing staff Hospitalist Physical - Physical exam Narrative exam: VITAL SIGNS: Reviewed. GENERAL: The patient appeared well nourished and normally developed. Vital signs as documented. HEAD: No signs of head trauma. EYES: Pupils are equal. Extraocular motions intact. EARS: Hearing grossly intact. MOUTH: Oropharynx is normal. NECK: No adenopathy, no JVD. CHEST: Chest with clear breath sounds bilaterally. No wheezes, rales, or rhonchi. CARDIAC: Regular rate and rhythm. S1 and S2, without murmurs, gallops, or rubs. VASCULAR: No Edema. Peripheral pulses normal and equal in all extremities. ABDOMEN: Soft, without detectable tenderness. No sign of distention. No rebound or guarding, and no masses palpated. Bowel Sounds normal. MUSCULOSKELETAL: Good range of motion of all major joints. Extremities without clubbing, cyanosis or edema. NEUROLOGIC EXAM: Alert and oriented x 3. No focal sensory or strength deficits. Speech normal. Follows commands. PSYCHIATRIC: Mood normal. SKIN: No rash or lesions. - Constitutional Vitals: Temp Pulse Resp BP Pulse Ox 97.1 F L 93 H 18 156/94 96 11/16/16 17:27 11/16/16 21:51 11/16/16 21:51 11/16/16 21:51 11/16/16 21:51 General appearance: Present: no acute distress Results - Labs CBC & Chem 7: 11/14/16 00:56 02 00:56 Labs: Laboratory Last Values WBC 7.6 K/mm3 (4.5-11.0) 11/14/16 00:56 RBC 4.15 M/mm3 (3.65-5.03) 11/14/16 00:56 Hgb 12.2 gm/dl (10.1-14.3) 11/14/16 00:56 Hct 38.0 % (30.3-42.9) 11/14/16 00:56 MCV 92 fl (79-97) 11/14/16 00:56 MCH 29 pg (28-32) 11/14/16 00:56 MCHC 32 % (30-34) 11/14/16 00:56 RDW 15.3 % (13.2-15.2) H 11/14/16 00:56 Plt Count 229 K/mm3 (140-440) 11/14/16 00:56 Lymph % (Auto) 32.4 % (13.4-35.0) 11/14/16 00:56 Wood % (Auto) 6.9 % (0.0-7.3) 11/14/16 00:56 Eos % (Auto) 2.6 % (0.0-4.3) 11/14/16 00:56 Baso % (Auto) 0.4 % (0.0-1.8) 11/14/16 00:56 Lymph # 2.5 K/mm3 (1.2-5.4) 11/14/16 00:56 Wood # 0.5 K/mm3 (0.0-0.8) 11/14/16 00:56 Eos # 0.2 K/mm3 (0.0-0.4) 11/14/16 00:56 Baso # 0.0 K/mm3 (0.0-0.1) 11/14/16 00:56 Seg Neutrophils % 57.7 % (40.0-70.0) 11/14/16 00:56 Seg Neutrophils # 4.4 K/mm3 (1.8-7.7) 11/14/16 00:56 Sodium 140 mmol/L (137-145) 11/14/16 00:56 Potassium 3.7 mmol/L (3.6-5.0) 11/14/16 00:56 Chloride 100.8 mmol/L (98-107) 11/14/16 00:56 Carbon Dioxide 24 mmol/L (22-30) 11/14/16 00:56 Anion Gap 19 mmol/L 11/14/16 00:56 BUN 12 mg/dL (7-17) 11/14/16 00:56 Creatinine 0.7 mg/dL (0.7-1.2) 11/14/16 00:56 Estimated GFR > 60 ml/min 11/14/16 00:56 BUN/Creatinine Ratio 17.14 % 11/14/16 00:56 Glucose 131 mg/dL (65-100) H 11/14/16 00:56 Calcium 9.3 mg/dL (8.4-10.2) 11/14/16 00:56 Total Creatine Kinase 42 units/L (30-135) 11/14/16 01:09 Troponin T < 0.010 ng/mL (0.00-0.029) 11/14/16 13:46 NT-Pro-B Natriuret Pep 88.89 pg/mL (0-900) 11/14/16 01:09 Triglycerides 156 mg/dL (2-149) H 11/14/16 07:43 Cholesterol 220 mg/dL (50-199) H 11/14/16 07:43 LDL Cholesterol Direct 151 mg/dL (50-130) H 11/14/16 07:43 HDL Cholesterol 38 mg/dL (40-59) L 11/14/16 07:43 Cholesterol/HDL Ratio 5.78 % 11/14/16 07:43
[2016-11-16] MEDS: ELAVIL PO SCH (22:13)
[2016-11-16] MEDS: LOVENOX SUB-Q SCH (22:13)
[2016-11-17] MEDS: BUSPAR PO SCH ×4 (08:22→14:57)
[2016-11-17] MEDS: NEURONTIN PO SCH ×2 (08:23→14:57)
[2016-11-17] MEDS: CATAPRES PO SCH (10:07)
[2016-11-17] MEDS: PEPCID PO SCH (10:08)
[2016-11-17] MEDS: RisperDAL PO SCH (10:08)
[2016-11-17] MEDS: COLACE PO SCH (10:08)
[2016-11-17] MEDS: PROzac PO SCH (10:08)
[2016-11-17] MEDS: KEPPRA PO SCH (10:08)
[2016-11-17] MEDS ORDERED: CATAPRES PO ONE (14:50)
[2016-11-17] MEDS: NORCO 5/325 PO PRN (15:31)
[2016-11-17 15:42] VITALS: BP 136/96
== END 2016-11-17 15:55 | disposition home or self-care (01) | DRG 206 ==
LOC: ED 00:23 → 4A 03:53
PROVIDERS: ADMIT Internal Medicine; ATTEND Internal Medicine
DX: M94.0 Chondrocostal junction syndrome [Tietze] (principal); K22.2 Esophageal obstruction; I11.0 Hypertensive heart disease with heart failure; I50.9 Heart failure, unspecified; E78.5 Hyperlipidemia, unspecified; G43.909 Migraine, unspecified, not intractable, without status migrainosus; G40.909 Epilepsy, unspecified, not intractable, without status epilepticus; F32.9 Major depressive disorder, single episode, unspecified; H40.9 Unspecified glaucoma; F17.210 Nicotine dependence, cigarettes, uncomplicated; I48.91 Unspecified atrial fibrillation; K21.9 Gastro-esophageal reflux disease without esophagitis; E78.2 Mixed hyperlipidemia; G89.29 Other chronic pain; K44.9 Diaphragmatic hernia without obstruction or gangrene; Z90.710 Acquired absence of both cervix and uterus
CPT/HCPCS: 36415; 71010; 78452; 80048; 80061; 82550; 83880; 84484; 85025; 93005; 93010; 93017; 93306; 94640; 96374; 96375; A9270-GY; A9502; J1650; J1940; J2270; J2405; J2785; J7512

== ENCOUNTER 2017-08-13 18:46 | Emergency (ER) | payer MEDICARE ==
[2017-08-13] MEDS ORDERED: ATROVENT IH ONE (20:08)
[2017-08-13] MEDS ORDERED: XOPENEX IH ONE (20:08)
[2017-08-13 20:11] LABS: Basophils % (Auto) 0.4 % (0.0-1.8); Eosinophils % (Auto) 2.8 % (0.0-4.3); Hematocrit 39.2 % (30.3-42.9); Hemoglobin 13.2 gm/dl (10.1-14.3); Mean Corpuscular HGB Conc 34 % (30-34); Mean Corpuscular Hemoglobin 31 pg (28-32); Mean Corpuscular Volume 92 fl (79-97); Platelet Count 232 K/mm3 (140-440); Red Blood Count 4.28 M/mm3 (3.65-5.03); Red Cell Distribution Width 15.5 % (13.2-15.2); White Blood Count 8.8 K/mm3 (4.5-11.0)
--- NOTE | 2017-08-13 20:12 | Emergency Department Report ---
ED Chest Pain HPI - General Chief Complaint: Chest Pain Stated Complaint: CHEST PAIN Time Seen by Provider: 08/13/17 20:03 Source: patient, EMS Mode of arrival: Stretcher Limitations: Other - History of Present Illness Initial Comments: Patient is 61 years old female history of high blood pressure congestive heart failure, she is a [place] patient complaining of chest pain for the last 9 days described as substernal and does not radiate. Pressure. She also complained of shortness of breath and wheezing. Denied any fever. MD Complaint: chest pain Onset: during rest Pain Location: substernal Severity: moderate Severity scale (0 -10): 10 Quality: pressure - Related Data Home Medications Medication Instructions Recorded Confirmed Last Taken Clonidine HCl [Kapvay] 0.1 mg PO BID 01/20/14 08/13/17 01/20/14 levETIRAcetam [Keppra TAB] 2 tab PO BID 01/20/14 08/13/17 01/20/14 Amitriptyline 150 mg PO QHS 11/14/16 08/13/17 Unknown Buspirone HCl [busPIRone] 5 mg PO TID 11/14/16 08/13/17 Unknown Gabapentin [Neurontin] 600 mg PO TID 11/14/16 08/13/17 Unknown hydrALAZINE [Apresoline TAB] 50 mg PO BID 11/14/16 08/13/17 Unknown risperiDONE [RisperDAL] 3 mg PO BID 11/14/16 08/13/17 Unknown Aspirin EC [Aspirin Enteric Coated 81 mg PO QDAY 08/13/17 08/13/17 Unknown TAB] Budesoni/Formotero 160-4.5(Nf) 2 puff IH BID 08/13/17 08/13/17 Unknown [Symbicort 160-4.5 (Nf)] Furosemide [Lasix] 20 mg PO DAILY 08/13/17 08/13/17 Unknown LORazepam [Ativan] 0.25 mg PO BID 08/13/17 08/13/17 Unknown Previous Rx's Medication Instructions Recorded Last Taken Type AtorvaSTATin [Lipitor] 20 mg PO QHS #30 tablet 11/14/16 Unknown Rx Allergies Allergy/AdvReac Type Severity Reaction Status Date / Time No Known Allergies Allergy Verified 01/20/14 20:30 Heart Score - HEART Score History: Moderately suspicious EKG: Non-specific Age: 45-65 Risk factors: > 3 risk factors or hx of atherosclerotic disease Troponin: < normal limit HEART Score: 5 - Critical Actions Critical Actions: 4-6 pts:12-16.6% risk of adverse cardiac event. Should be admitted ED Review of Systems ROS: Stated complaint: CHEST PAIN Other details as noted in HPI Comment: All other systems reviewed and negative Constitutional: denies: chills, fever ENT: denies: throat pain Respiratory: orthopnea, shortness of breath, SOB with exertion. denies: cough Cardiovascular: chest pain, dyspnea on exertion, orthopnea Gastrointestinal: denies: abdominal pain, nausea, vomiting, diarrhea, constipation, hematemesis, melena, hematochezia Musculoskeletal: denies: back pain Skin: denies: rash, lesions Neurological: denies: headache Psychiatric: denies: anxiety, depression, homicidal thoughts, suicidal thoughts ED Past Medical Hx - Past Medical History Previous Medical History?: Yes Hx Hypertension: Yes Hx Congestive Heart Failure: Yes Hx GERD: Yes (Acid reflux) Hx Headaches / Migraines: Yes Hx Seizures: Yes Hx Psychiatric Treatment: Yes (depression, Bipolar) Hx COPD: Yes Additional medical history: Glaucoma, Hiatel Hernia, Esophageal Stricture - Surgical History Past Surgical History?: Yes Additional Surgical History: Hysterectomy, Back Surgery - Social History Smoking Status: Current Every Day Smoker - Medications Home Medications: Home Medications Medication Instructions Recorded Confirmed Last Taken Type Clonidine HCl [Kapvay] 0.1 mg PO BID 01/20/14 08/13/17 01/20/14 History levETIRAcetam [Keppra TAB] 2 tab PO BID 01/20/14 08/13/17 01/20/14 History Amitriptyline 150 mg PO QHS 11/14/16 08/13/17 Unknown History AtorvaSTATin [Lipitor] 20 mg PO QHS #30 tablet 11/14/16 08/13/17 Unknown Rx Buspirone HCl [busPIRone] 5 mg PO TID 11/14/16 08/13/17 Unknown History Gabapentin [Neurontin] 600 mg PO TID 11/14/16 08/13/17 Unknown History hydrALAZINE [Apresoline TAB] 50 mg PO BID 11/14/16 08/13/17 Unknown History risperiDONE [RisperDAL] 3 mg PO BID 11/14/16 08/13/17 Unknown History Aspirin EC [Aspirin Enteric Coated 81 mg PO QDAY 08/13/17 08/13/17 Unknown History TAB] Budesoni/Formotero 160-4.5(Nf) 2 puff IH BID 08/13/17 08/13/17 Unknown History [Symbicort 160-4.5 (Nf)] Furosemide [Lasix] 20 mg PO DAILY 08/13/17 08/13/17 Unknown History LORazepam [Ativan] 0.25 mg PO BID 08/13/17 08/13/17 Unknown History ED Physical Exam - General Limitations: Other General appearance: alert, in no apparent distress - Head Head exam: Present: atraumatic - Eye Eye exam: Present: normal appearance, PERRL - ENT ENT exam: Present: normal exam, normal orophraynx, mucous membranes moist - Neck Neck exam: Present: normal inspection - Respiratory Respiratory exam: Present: wheezes, rhonchi, decreased breath sounds, prolonged expiratory. Absent: respiratory distress, rales, stridor, accessory muscle use - Cardiovascular Cardiovascular Exam: Present: regular rate, normal rhythm, normal heart sounds - GI/Abdominal GI/Abdominal exam: Present: soft, normal bowel sounds. Absent: distended, tenderness, guarding, rebound, rigid, mass, bruit, pulsatile mass, hernia - Extremities Exam Extremities exam: Present: normal inspection, normal capillary refill. Absent: pedal edema - Back Exam Back exam: Present: normal inspection. Absent: tenderness, CVA tenderness (R), CVA tenderness (L) - Neurological Exam Neurological exam: Present: alert, oriented X3, CN II-XII intact, normal gait - Skin Skin exam: Present: warm, intact, normal color. Absent: cyanosis ED Course Vital Signs 08/13/17 08/13/17 08/13/17 19:24 19:29 19:48 Temperature 97.6 F 97.6 F Pulse Rate 77 77 Pulse Rate [ Anterior Bilateral Throughout] Respiratory 20 20 20 Rate Respiratory Rate [Anterior Bilateral Throughout] Blood Pressure 142/87 Blood Pressure 142/87 [Right] O2 Sat by Pulse 97 97 97 Oximetry 08/13/17 08/13/17 08/13/17 20:48 21:35 23:00 Temperature Pulse Rate 75 Pulse Rate [ 73 76 Anterior Bilateral Throughout] Respiratory 18 Rate Respiratory 16 16 Rate [Anterior Bilateral Throughout] Blood Pressure Blood Pressure 132/87 [Right] O2 Sat by Pulse 97 Oximetry - Reevaluation(s) Reevaluation #1: 08/13/17 23:18 Patient is sleeping in no acute distress is easily arousable Reevaluation #2: 08/14/17 00:35 Patient just spent completely resolved with Ativan. I believe this is an atypical chest pain. 2 sets of troponin is negative EKG was no acute finding will discharge patient to go back to [place] ED Medical Decision Making - Lab Data Result diagrams: 08/13/17 19:45 08/13/17 19:45 - EKG Data -: EKG Interpreted by Ia EKG shows normal: sinus rhythm - EKG Data Interpretation: no acute changes - Radiology Data Radiology results: report reviewed Chest x-ray was no acute abnormality Critical care attestation.: If time is entered above; I have spent that time in minutes in the direct care of this critically ill patient, excluding procedure time. ED Disposition Clinical Impression: Chest pain Disposition: [id number] ANOTHER TYPE [facility]ARE Is pt being admited?: No Condition: Stable Instructions: Chest Pain (ED) Referrals: PRIMARY CARE, [Primary Care Provider] - 3-5 Days
[2017-08-13 20:30] LABS: Anion Gap 15 mmol/L; BUN/Creatinine Ratio 18; Blood Urea Nitrogen 16 mg/dL (7-17); Calcium 9.4 mg/dL (8.4-10.2); Carbon Dioxide 32 mmol/L (22-30); Chloride 100.8 mmol/L (98-107); Glucose 97 mg/dL (65-100); Potassium 4.4 mmol/L (3.6-5.0); Sodium 143 mmol/L (137-145)
--- NOTE | 2017-08-13 20:46 | XRay Report ---
FINAL REPORT PROCEDURE: XR CHEST 1V AP TECHNIQUE: Chest radiograph anteroposterior view. CPT 79240 HISTORY: shortness of breath COMPARISON: No prior studies are available for comparison. FINDINGS: Heart: Mild cardiomegaly is noted. Mediastinum/Vessels: Normal. Lungs/Pleural space: Lungs are hyperinflated. There are subsegment atelectatic changes in left lung base. Bilateral pleural spaces and right lung are clear. . Bony thorax: No acute osseous abnormality. Life support devices: None. IMPRESSION: Mild cardiomegaly Atelectatic changes left lung base. Any underlying infiltrates cannot be excluded. A two view chest study is recommended whenever the patient's condition permits..
[2017-08-13] MEDS ORDERED: ATIVAN ONE (21:53)
[2017-08-13] MEDS ORDERED: ATIVAN IV ONE (22:04)
[2017-08-14 04:08] VITALS: BP 141/88
== END 2017-08-14 04:10 | disposition other institution (70) ==
LOC: ED 18:46 → EEVIPCON 18:46 → ED 08-14 04:10
DX: R07.2 Precordial pain (principal); I10 Essential (primary) hypertension; I50.9 Heart failure, unspecified; K21.9 Gastro-esophageal reflux disease without esophagitis; G43.909 Migraine, unspecified, not intractable, without status migrainosus; F32.9 Major depressive disorder, single episode, unspecified; F17.200 Nicotine dependence, unspecified, uncomplicated; J44.9 Chronic obstructive pulmonary disease, unspecified
CPT/HCPCS: 36415; 71010; 80048; 83880; 84484; 85025; 93005; 93010; 94640; 96374; 96375; 99285; J2060; J2930